=== PATIENT | male | born 1965 | race Caucasian/White ===

== ENCOUNTER 2016-06-05 07:45 | Emergency (ER) | payer MEDICARE ==
[2016-06-05 08:00] VITALS: BP 158/92; PULSE 81; TEMP 97.6; BMI 31.1
[2016-06-05] MEDS ORDERED: KETOROLAC TROMETHAMINE 10 MG TAB PO ONE (08:09)
--- NOTE | 2016-06-05 08:12 | EDPRACDOC ---
- General Information Chief Complaint: Back Pain Stated Complaint: BACK PAIN Time Seen by Provider: 06/05/16 08:09 Information Source: Patient Mode Of Arrival: Car Home Medications: Home Medications Atorvastatin Calcium [Lipitor] 20 mg PO HS 01/04/13 Amlodipine [Norvasc] 5 mg PO DAILY 08/31/13 Polyethylene Glycol 3350 [Miralax] 17 gm PO DAILY 30 Days 09/07/13 Omeprazole [Prilosec] 20 mg PO DAILY 09/24/13 Pregabalin [Lyrica] 25 mg PO TID 11/06/13 Diclofenac Sodium 75 mg PO BID 05/08/15 Oxycodone HCl [Oxycodone Immediate Release] 10 mg PO Q6H PRN 12/24/15 Tramadol HCl [Ultram] 50 mg PO Q8H PRN 12/24/15 Ketorolac Tromethamine 10 mg PO Q6H PRN #20 tab 06/05/16 Allergies/Adverse Reactions: Allergies Allergy/AdvReac Type Severity Reaction Status Date / Time No Known Allergies Allergy Verified 06/05/16 08:00 - History of Present Illness Onset: YEST HPI: CHRONIC BACK PAIN FOR YEARS. TWENTY YEARS. HX OF SURG TO LOWER BACK. WANTS PAIN MEDS. HX OF NARCOTIC ABUSE/DEPENDENCE AND CHRONIC PAIN SYNDROMES. TAKES VALIUM AND OXYCODONE. WANTS OXYCODONE. TOLD HIM TO FU WITH PMD FOR ALL NARCOTICS. SAYS HE DECREASED THE MG STRENGTH OF OXYCODONE FROM 15 TO 10. STILL HAS BENZO. TAKES NSAID. PT LATER CALLED CHARGE NURSE AND STATED HE WOULD CONTACT BOARD, BECAUSE WE GAVE HIM NSAIDS. [facility] WEBSITE FOR PRESCRIPTIONS REVIEWED Pain Location: Reports: Lower, Lumbar Pain Radiates To: Reports: None Pain Caused By: Reports: Spontaneous Relevant History: Reports: Chronic back pain Pain Severity: Reports: Mild Pain Quality: Reports: Aching Worsened By: Reports: Movement Associated Signs and Symptoms: Reports: None ED Past Medical History - History Reviewed Yes Nurses notes reviewed and agree except as marked - Patient Medical History Cardiac History: Reports: Hypertension, Congestive Heart Failure, Cardiac Catheterization (2011), Hypercholesterolemia Respiratory History: Reports: Asthma, COPD GI/ History: Reports: Gastroesophageal Reflux, Ulcer Musculoskeletal History: Reports: Arthritis, Gout Psychological History: Reports: Anxiety. Denies: Depression Systemic History: Reports: Diabetes. Denies: Cancer Additional Past Medical History: CHRONIC PAIN Surgical History: Reports: Cardiac Catheterization (2012), Hernia Surgery - Family Medical History Reports: Hypertension, Cancer, Stroke, Cardiac Disorders. Denies: Diabetes - Social Medical History Smoking Status: Light tobacco smoker (less than 5/day) EDM Review of Systems - Review of Systems ROS Negative Except as Marked: Yes All systems reviewed and were negative except as marked - Physical Exam Constitutional: No apparent distress Oriented to: Time, Person, Place Last recorded Vital Signs: Last Vital Signs Temp 97.6 F 06/05/16 07:58 Pulse 81 06/05/16 07:58 Resp 20 06/05/16 07:58 BP 158/92 06/05/16 07:58 Pulse Ox 98 06/05/16 07:58 Oxygen Pulse Oxygen Saturation 98 O2 Device Oxygen Flow Rate Fraction of Inspired Oxygen ( FIO2) ED Back Exam - Neurologic Motor Deficit: None - Musculoskeletal Cervical: Normal Thoracic: Normal Lumbar: Normal Midline: Normal Paraspinous: Normal Straight Leg Raise: Negative Pelvis: Normal Decision Time to Discharge: 08:11 - Departure Yes I personally saw and evaluated the patient. Disposition: Home Condition: Good Final Diagnosis: CHRONIC BACK PAIN Instructions: Acute Low Back Pain (ED) Education/Counseling Given To: Patient Education/Counseling Given Regarding: Diagnosis, Treatment, Prognosis Referrals: Per Jiang MD [Primary Care Provider] - One Week Prescriptions: Ketorolac Tromethamine 10 mg PO Q6H PRN #20 tab PRN Reason: Pain
== END 2016-06-05 08:24 | disposition home or self-care (01) ==
LOC: ED 07:45
DX: M54.5 Low back pain (principal); G89.29 Other chronic pain; Z79.891 Long term (current) use of opiate analgesic
CPT/HCPCS: 99282; A9270; J3490